=== PATIENT | female | born 1935 | race Caucasian/White ===

== ENCOUNTER 2016-06-09 15:39 | Inpatient (IN) | payer MEDICARE, BC ==
[~2016-06-09 15:39] MED LIST: CALTRATE-600 W600 MG PO; COLACE-DPS100 MG PO; COMPAZINE10 MG PO; DELTASONE DPS5 MG PO; DULCOLAX-DPS10 MG PR; HYTONE-DPS 2.5%30 GM TP; KETOCONAZOLE200 MG PO; LEVAQUIN DPS500 MG PO; LOVENOX DP100 MG/1 M SQ; MAALOX DPS30 ML PO; MILK OF MAGNESI10 ML PO; MIRALAX PACKET17 GM PO; OCUVITE WITH L1 EACH PO; OXY IR DPS5 MG PO; OYSTER SHELL C500 MG PO; PROTONIX40 MG PO; TUMS DPS500 MG PO; TYLENOL325 MG PO; VFEND200 MG PO; VITAMIN B-12500 MCG PO; ZANTAC DPS150 MG PO; ZOFRAN8 MG PO; ZOVIRAX400 MG PO
[2016-06-12] MEDS ORDERED: ASPIRIN EC81 MG PO (08:48)
[2016-06-12] MEDS ORDERED: DOCUSATE SODIU100 M1 PO ×2 (08:49→08:50)
[2016-06-12] MEDS ORDERED: PREVACID30 MG PO (08:49)
[2016-06-12] MEDS ORDERED: LUTEIN6 M1 PO (08:49)
[2016-06-12] MEDS ORDERED: AVELOX400 MG PO (08:50)
[2016-06-12] MEDS ORDERED: DIFLUCAN DPS100 MG PO (08:51)
[2016-09-11] MEDS ORDERED: RANITIDINE HCL150 M1 PO (13:53)
[2016-09-11] MEDS ORDERED: TYLENOL-DPS650 MG PR (13:54)
[2016-09-11] MEDS ORDERED: NITROSTAT0.4 MG (13:54)
== END 2016-06-11 11:29 | disposition home or self-care (01) | DRG 809 ==
DX: D61.818 Other pancytopenia (principal); C92.Z0 Other myeloid leukemia not having achieved remission; D46.9 Myelodysplastic syndrome, unspecified

== ENCOUNTER → 2016-07-17 | Outpatient (CLI) | payer MEDICARE, BC ==
[~2016-07-17] MED LIST changes: +ASPIRIN EC81 MG PO; +AVELOX400 MG PO; +DIFLUCAN DPS100 MG PO; +DOCUSATE SODIU100 M1 PO; +LUTEIN6 M1 PO; +NITROSTAT0.4 MG; +PREVACID30 MG PO; +RANITIDINE HCL150 M1 PO; +TYLENOL-DPS650 MG PR
== END | disposition home or self-care (01) ==
LOC: THER.SSS 16:29
DX: C92.A0 Acute myeloid leukemia with multilineage dysplasia, not having achieved remission (principal)